=== PATIENT | male | born 1945 | race Hispanic/Latino ===

== ENCOUNTER 2018-07-30 13:04 | Day surgery (SDC) | payer MEDICARE, OTHER ==
[~2018-07-30 13:04] MED LIST: ZOFRAN ONE
[2018-07-30] MEDS ORDERED: NACL 0.9% 1000 ML 1,000 ML IV SCH (14:00)
[2018-07-30] MEDS ORDERED: VERSED ONE (16:39)
[2018-07-30] MEDS ORDERED: DIPRIVAN 10 MG/ML IV ONE (16:39)
[2018-07-30] MEDS ORDERED: AMIDATE IV ONE (16:39)
--- NOTE | 2018-07-30 16:58 | Operative Report ---
Operative Report Operative Report: Date: 07/30/2018 Operative Report: Date of procedure: 07/30/2018 Procedure: Esophagogastroduodenoscopy with multiple mucosal biopsies Attending physician: Moisés Serrato MD Machine Quilt Stuffer: Moisés Serrato MD Indication: Patient is a 72-year-old female who presented with a history of epigastric and chest pain heartburn with indigestion and dysphagia. Patient has a past history of a meat impaction requiring emergency endoscopy. Lately, he has had a persistence of dysphagia and recently had another episode of meat impaction which resolved spontaneously.. An upper endoscopy is done to assess patient so that treatment may be directed based on the findings. Consent: Informed consent was obtained after advising the patient and family regarding nature of this procedure, its indications, potential benefits as well as possible complications including but not limited to bleeding perforation and adverse reaction to medication, infection as well as other cardiopulmonary complications. An informed written and verbal consent was then obtained after due opportunity was provided for questions and answers. Monitoring: Patient was monitored continuously with pulse oximetry and electrocardiographic recordings as well as blood pressure recordings. Vital signs remained stable throughout this procedure with no untoward events. Preoperative assessment: Patient was assessed immediately prior to this procedure for capacity to tolerate monitored anesthesia care and moderate sedation as well as general anesthesia. Patient's ASA classification is 2, Mallampati class is 2, Hyomental distance is 3. Instrument: [employer] video endoscope Medications: Propofol given intravenously in divided doses. For details please refer to anesthesia records. Description of procedure: Patient was placed in the left lateral decubitus position after achieving sedation, the endoscope was introduced into the esophagus under direct vision. It was then advanced beyond the esophagus into the stomach and then beyond the stomach into the duodenum and to the second portion of the duodenum. It was subsequently withdrawn with careful inspection of all mucosal surfaces with the following findings. Findings: She had mild erosive esophagitis involving the distal esophagus. There was a small sliding hiatal hernia seen on entry into the stomach. There was erythema and erosions in the gastric antrum. Biopsies of the antrum were obtained for histopathology. The duodenum was normal to second portion. Impression: Mild erosive esophagitis Hiatal hernia. Mucosal changes suggestive of gastritis. Plan: Follow pathology report. Continue treatment per Dr. pump inhibitors Patient's symptoms may be in part due to erosive esophagitis which has improved with treatment. He'll be observed clinically for recurrence of dysphagia. Will also direct additional treatment based on the pathology report.
--- NOTE | 2018-07-30 16:59 | Discharge Summary ---
Short Stay Discharge Plan Activity: advance as tolerated Weight Bearing Status: Weight Bear as Tolerated Diet: regular Follow up with: GENOVEVA WING MD [Primary Care Provider] - 7 Days
--- NOTE | 2018-07-30 17:01 | Anesthesia Day of Surgery ---
Anesthesia Day of Surgery - Day of Surgery Patient Examined: Yes Patient H&P Reviewed: Yes Patient is NPO: Yes Beta Blockers: Yes Cardiac Clearance: No Pulmonary Clearance: No
--- NOTE | 2018-07-30 17:02 | Anesthesia Consultation ---
Anesthesia Consult and Med Hx Date of service: 07/30/18 - Airway Anesthetic Teeth Evaluation: Good ROM Head & Neck: Adequate Mental/Hyoid Distance: Adequate Mallampati Class: Class III Intubation Access Assessment: Good - Pulmonary Exam CTA: No - Cardiac Exam Cardiac Exam: No Murmur - Pre-Operative Health Status ASA Pre-Surgery Classification: ASA3 Proposed Anesthetic Plan: MAC - Cardiovascular System Hx Hypertension: Yes Hx Coronary Artery Disease: Yes Hx Heart Attack/AMI: Yes Hx Percutaneous Transluminal Coronary Angioplasty (PTCA): Yes - Endocrine Hx Non-Insulin Dependent Diabetes: Yes
--- NOTE | 2018-07-30 17:11 | History and Physical Report ---
History of Present Illness Date of examination: 07/30/18 Date of admission: 07/30/2018 Chief complaint: Dysphagia, chest pain and heartburn and indigestion History of present illness: Patient is a 72-year-old male who presents his history of dysphagia heartburn and indigestion. Patient presented recently with meat impaction which resolved spontaneously. This is similar to the prior episode patient had when he had a meat impaction and required urgent endoscopy. Patient now presents similarly. Patient states that prior to his presentation, he had been placed on proton pump inhibitors which appeared to help immensely with his symptoms. Past History Past Medical History: COPD, diabetes, hypertension, hyperlipidemia Social history: denies: smoking, alcohol abuse Family history: hypertension Medications and Allergies Allergies Allergy/AdvReac Type Severity Reaction Status Date / Time No Known Allergies Allergy Verified 07/30/18 14:14 Home Medications Medication Instructions Recorded Confirmed Last Taken Type Centrum Silver Men Tablet 1 tab PO DAILY 07/30/18 07/30/18 07/28/18 History Citracal Soft Chew 2 tab PO DAILY 07/30/18 07/30/18 07/28/18 History Clopidogrel Bisulfate [Clopidogrel] 1 tab PO DAILY 07/30/18 07/30/18 07/27/18 History Empagliflozin (Nf) [Jardiance (Nf)] 1 tab PO 07/30/18 07/28/18 History Gabapentin [Neurontin] 1 tab PO PRN PRN MDD 3 DAILY 07/30/18 07/30/18 07/28/18 History Glimepiride [Amaryl] 2 tab PO DAILY 07/30/18 07/30/18 07/28/18 History Lisinopril [Zestril TAB] 2.5 mg PO QDAY 07/30/18 07/30/18 07/28/18 History Metoprolol Succinate [Toprol Xl] 1 tab PO DAILY 07/30/18 07/30/18 07/28/18 History Move Free Joint Health Tablet 2 tab PO DAILY 07/30/18 07/30/18 07/28/18 History Naproxen 500 mg PO BID 07/30/18 07/30/18 07/28/18 History Omeprazole 40 mg PO DAILY 07/30/18 07/30/18 07/28/18 History Simvastatin 1 tab PO DAILY 07/30/18 07/30/18 07/28/18 History Sitagliptin Phos/Metformin HCl 2 tab PO DAILY 07/30/18 07/30/18 07/28/18 History [Janumet 50-1,000 mg Tablet] Vitamin C 2 tab PO DAILY 07/30/18 07/30/18 07/28/18 History Active Meds: Active Medications Sodium Chloride (Nacl 0.9% 1000 Ml) 1,000 mls @ 50 mls/hr IV DIRECT LESLIE Last Admin: 07/30/18 14:20 Dose: 50 mls/hr Documented by: Review of Systems All systems: negative Exam - Constitutional Vitals: Temp Pulse Resp BP Pulse Ox 97.7 F 62 20 125/77 95 07/30/18 16:55 07/30/18 16:55 07/30/18 16:55 07/30/18 16:55 07/30/18 16:55 General appearance: Present: no acute distress, well-nourished - EENT Eyes: Present: PERRL ENT: hearing intact, clear oral mucosa - Neck Neck: Present: supple, normal ROM - Respiratory Respiratory effort: normal Respiratory: bilateral: CTA - Cardiovascular Heart Sounds: Present: S1 & S2. Absent: rub, click - Extremities Extremities: pulses symmetrical, No edema Peripheral Pulses: within normal limits - Abdominal General gastrointestinal: Present: soft, non-tender, non-distended, normal bowel sounds Male genitourinary: Present: normal - Integumentary Integumentary: Present: clear, warm, dry - Musculoskeletal Musculoskeletal: gait normal, strength equal bilaterally - Psychiatric Psychiatric: appropriate mood/affect, intact judgment & insight - Neurologic Neurologic: CNII-XII intact, moves all extremities Results - Labs Labs: Abnormal lab results 07/30/18 Range/Units 14:30 POC Glucose 127 H (70-105) Assessment and Plan Mik indigestion with epigastric pain and dysphagia. Plan: Evaluate patient with upper endoscopy with possible dilation.
[2018-07-30 17:45] VITALS: BP 110/80
== END 2018-07-30 13:05 | disposition home or self-care (01) ==
LOC: GIO 13:04
PROVIDERS: ATTEND Internal Medicine Gastroenterology
DX: K29.50 Unspecified chronic gastritis without bleeding (principal); K21.0 Gastro-esophageal reflux disease with esophagitis; K30 Functional dyspepsia; R13.10 Dysphagia, unspecified; K44.9 Diaphragmatic hernia without obstruction or gangrene; E11.42 Type 2 diabetes mellitus with diabetic polyneuropathy; I25.10 Atherosclerotic heart disease of native coronary artery without angina pectoris; I10 Essential (primary) hypertension; E78.00 Pure hypercholesterolemia, unspecified; M19.90 Unspecified osteoarthritis, unspecified site; Z96.653 Presence of artificial knee joint, bilateral; Z98.890 Other specified postprocedural states; Z79.899 Other long term (current) drug therapy
CPT/HCPCS: 43239; 82962; 88305; 88342; J2250; J2405; J2704; J7030